=== PATIENT | male | born 1970 | race Caucasian/White ===

== ENCOUNTER 2016-06-08 13:11 | Emergency (ER) | payer MEDICARE, OTHER ==
[~2016-06-08] VITALS: Ht 175.3 cm; Wt 83.9 kg
[2016-06-08 13:11] VITALS: BP 150/96; PULSE 114; RESP 19; TEMP 97.8; O2SAT 96
[2016-06-08 14:30] VITALS: BP 148/92; PULSE 88; RESP 20; TEMP 97.8; O2SAT 96
== END 2016-06-08 14:30 ==
LOC: SED 13:11
DX: Z02.89 Encounter for other administrative examinations (principal); E11.9 Type 2 diabetes mellitus without complications
CPT/HCPCS: 99283